=== PATIENT | male | born 1945 | race Caucasian/White ===

== ENCOUNTER 2017-12-26 09:05 | Day surgery (SDC) | payer OTHER ==
[~2017-12-26] VITALS: Ht 182.9 cm; Wt 78.3 kg
[~2017-12-26 09:05] MED LIST: OXYC5CAP2 PO; TAMS0.4C2 PO
[2017-12-26] MEDS ORDERED: LACTATED RINGERS 1,000 ML IV SCH (09:40)
[2017-12-26 09:44] VITALS: BP 151/93
[2017-12-26] MEDS ORDERED: LIDOCAINE-MPF 2% ,5ML ONE (10:39)
[2017-12-26] MEDS ORDERED: PROPOFOL 10 MG/ML, 20ML ONE ×2 (10:39→11:24)
[2017-12-26] MEDS ORDERED: HYDROcodone/APAP 7.5-325MG/15ML UDC PO PRN (11:00)
[2017-12-26] MEDS ORDERED: FENTANYL PF 100 MCG/2ML IV PRN (11:00)
[2017-12-26] MEDS ORDERED: OXYcodone 5 MG/5 ML ORAL.SOL UDC PO PRN (11:00)
[2017-12-26] MEDS ORDERED: ONDANSETRON 2MG/ML, 2ML IVPush PRN (11:00)
== END 2017-12-26 13:15 ==
LOC: OUT 09:05
PROVIDERS: ATTEND Internal Medicine
DX: K86.2 Cyst of pancreas (principal); K20.9 Esophagitis, unspecified; C61 Malignant neoplasm of prostate; Z88.0 Allergy status to penicillin; Z88.8 Allergy status to other drugs, medicaments and biological substances; Z72.89 Other problems related to lifestyle; Z98.890 Other specified postprocedural states
CPT/HCPCS: 43259; J2704; J3490; J7120